=== PATIENT | female | born 1945 | race Caucasian/White ===

== ENCOUNTER 2019-04-30 12:33 | Inpatient (IN) ==
[2019-04-30] MEDS ORDERED: Isovue-370 500 ML BOTTLE IVP ONE (13:10)
--- NOTE | 2019-04-30 13:23 | Emergency Department Note ---
Disposition Clinical Impression: Right leg weakness, Stroke-like symptoms Disposition: Admitted As Inpatient Referrals: NONE,PCP [Primary Care Provider] - Forms: ED Satisfaction Letter Time of Disposition: 13:59 General Adult HPI - General Chief complaint: ED Neuro Symptoms/Deficit Stated complaint: Numbness/tingling right leg Time Seen by Provider: 04/30/19 12:55 Source: patient, family Mode of arrival: private vehicle Limitations: no limitations Nursing Notes Reviewed: Yes Vital Signs Reviewed: Yes - History of Present Illness HPI Narrative: Patient is a 74-year-old female in no past medical history presenting with a chief complaint of right-sided weakness. The patient states for the past 2-3 days, she complains of left lower extremity weakness and difficulty ambulating. She also feels like her left leg is numb. She also complains of some right sided weakness and hand numbness. She states that the numbness has improved. When she told her son today about the symptoms, he brought her to the emergency department for further evaluation. She denies any head trauma, headache, changes in vision, no slurred speech or confusion, chest pain, shortness of breath, abdominal pain, vomiting, recent illnesses. She states she has never had these symptoms before. Pain Scale: 0 - Related Data Home Medications Medication Instructions Recorded Confirmed No Known Home Drugs 04/30/19 04/30/19 Allergies Allergy/AdvReac Type Severity Reaction Status Date / Time No Known Allergies Allergy Verified 04/30/19 13:43 All systems ED: reviewed and negative except as stated. Review of Systems: As Per HPI Constitutional: Reports: weakness. Denies: fever, chills Eyes: Denies: vision change Cardiovascular: Denies: chest pain, palpitations Respiratory: Denies: cough, dyspnea Gastrointestinal: Denies: abdominal pain, nausea, vomiting Musculoskeletal: Denies: back pain Neurological: Reports: weakness, numbness. Denies: headache, confusion, vertigo Past Medical History - Past Medical History Attestation: Yes The following information was validated with the patient. Source: patient Medical history: Reports: non-contributory Psychiatric history: Reports: no psych history - Social History Smoking Status: Current every day smoker Smokeless Tobacco Status: No Alcohol use: Reports: rarely Drug use: Reports: none Physical Exam - General Limitations: no limitations General appearance: alert, in no apparent distress - Head Head exam: atraumatic, normocephalic - Eye Eye exam: Present: normal appearance, PERRL, EOMI. Absent: nystagmus - ENT ENT exam: normal exam, normal oropharynx, TM's normal bilaterally - Neck Neck exam: Present: normal inspection, trachea midline - Chest Chest inspection: Present: normal inspection, symmetric chest wall rise - Respiratory Respiratory exam: Present: normal lung sounds bilaterally. Absent: respiratory distress, wheezes - Cardiovascular Cardiovascular exam: Present: regular rate, normal rhythm, other (Bilateral radial and dorsalis pedis pulses are equal) - Abdominal Exam Abdominal exam: Present: soft, Non-Tender. Absent: distention - Extremities Exam Extremities exam: Present: full ROM, normal capillary refill. Absent: pedal edema - Neurological Exam Neurological exam: Present: alert, oriented X3, CN II-XII intact. Absent: motor sensory deficit - Expanded Neurological Exam Speech: Present: fluid speech Cerebellar function: finger to nose: Abnormal Right Motor strength - LUE: 5/5 Motor strength - RUE: 5/5 Motor strength - LLE: 5/5 Motor strength - RLE: 4/5 Upper motor neuron exam: adrianne neglect: Absent bilaterally, pronator drift: Absent bilaterally Sensory exam upper extremity: light touch: Normal Sensory exam lower extremity: light touch: Normal - Psychiatric Psychiatric exam: Present: normal affect, normal mood - Skin Skin exam: Present: warm, dry Course Vital Signs Temperature 98.0 F 04/30/19 12:39 Pulse Rate 84 04/30/19 12:39 Respiratory Rate 16 04/30/19 12:39 Blood Pressure 213/111 04/30/19 12:39 O2 Sat by Pulse Oximetry 96 04/30/19 12:39 Temperature 98.0 F 04/30/19 12:48 Pulse Rate 84 04/30/19 12:48 Respiratory Rate 16 04/30/19 12:48 Blood Pressure 213/111 04/30/19 12:48 O2 Sat by Pulse Oximetry 96 04/30/19 12:48 Oxygen Delivery Oxygen Delivery Room Air Medical Decision Making - [facility] Narrative Medical decision making narrative: Patient has CC of right leg weakness and numbness. Numbness is improving. She has an NIHSS of 2 with drift of the right lower extremity but does not hit bed and ataxia of the right upper extremity. Strength of the right lower extremity is 4/5 compared to the left and strength is equal of bilateral upper extremities. She has no sensory deficits on examination. Patient does not meet criteria for thrombectomy and TPA secondary to time of onset and NIH score. Will obtain stroke workup and admit the patient for further management 13:50 Labs and imaging reviewed. Hospice has been paged for admission for further stroke workup. Aspirin will be given as CT head shows no intracranial bleed 13:[address] Keating who accepts admission for further stroke workup. - Medical Records Medical records reviewed: Yes I reviewed the patient's medical records. - Lab Data Lab results reviewed: Yes I reviewed the patient's lab results. Result diagrams: 04/30/19 13:18 04/30/19 13:18 Lab Results 04/30/19 04/30/19 04/30/19 Range/Units 13:11 13:18 13:18 WBC 5.6 (4.3-11.1) K/mcL RBC 4.68 (3.82-4.97) M/mcL Hgb 14.4 (11.5-15.4) g/dL Hct 43.2 (35.3-44.9) % MCV 92.3 (83.0-100.0) fL MCH 30.8 (28.0-33.3) pg MCHC 33.3 (31.6-35.5) g/dL RDW 12.7 (11.5-14.5) % Plt Count 225 (140-400) K/mcL MPV 9.8 (9.4-12.4) fL Immature Gran % 0.2 (0-4) % Seg Neutrophils % 60.9 % Lymphocytes % 29.9 % Monocytes % 6.2 % Eosinophils % 1.4 % Basophils % 1.4 % Neutrophils # 3.4 (1.6-8.9) K/mcL Lymphocytes # 1.7 (0.6-4.6) K/mcL Monocytes # 0.4 (0.0-1.3) K/mcL Eosinophils # 0.1 (0.0-0.6) K/mcL Basophils # 0.1 (0.0-0.2) K/mcL PT 11.2 (9.4-12.1) Seconds INR 1.0 Sodium (136-145) mEq/L Potassium (3.5-5.1) mEq/L Chloride (98-107) mEq/L Carbon Dioxide (23-29) mEq/L BUN (8-23) mg/dL Creatinine (0.60-1.20) mg/dL Est GFR ( Amer) (> 60) Est GFR (Non-Af Amer) (> 60) BUN/Creatinine Ratio (6-26) Glucose (70-105) mg/dL POC Glucose 103 H (70-99) mg/dL Calculated Osmolality (280-300) Calcium (8.6-10.3) mg/dL Troponin I (< 0.04) ng/mL 04/30/19 Range/Units 13:18 WBC (4.3-11.1) K/mcL RBC (3.82-4.97) M/mcL Hgb (11.5-15.4) g/dL Hct (35.3-44.9) % MCV (83.0-100.0) fL MCH (28.0-33.3) pg MCHC (31.6-35.5) g/dL RDW (11.5-14.5) % Plt Count (140-400) K/mcL MPV (9.4-12.4) fL Immature Gran % (0-4) % Seg Neutrophils % % Lymphocytes % % Monocytes % % Eosinophils % % Basophils % % Neutrophils # (1.6-8.9) K/mcL Lymphocytes # (0.6-4.6) K/mcL Monocytes # (0.0-1.3) K/mcL Eosinophils # (0.0-0.6) K/mcL Basophils # (0.0-0.2) K/mcL PT (9.4-12.1) Seconds INR Sodium 139 (136-145) mEq/L Potassium 3.7 (3.5-5.1) mEq/L Chloride 106 (98-107) mEq/L Carbon Dioxide 24 (23-29) mEq/L BUN 17 (8-23) mg/dL Creatinine 0.47 L (0.60-1.20) mg/dL Est GFR ( Amer) > 60 (> 60) Est GFR (Non-Af Amer) > 60 (> 60) BUN/Creatinine Ratio 36 H (6-26) Glucose 110 H (70-105) mg/dL POC Glucose (70-99) mg/dL Calculated Osmolality 290 (280-300) Calcium 9.4 (8.6-10.3) mg/dL Troponin I < 0.03 (< 0.04) ng/mL - Radiology Data Radiology results reviewed: Yes I reviewed the patient's radiology results. Head CT 04/30/19 13:10 IMPRESSION: No acute intracranial abnormality. D/ / 04/30/2019 13:37:26 Melissa Castellanos MD / [facility] Interpreting Provider: Melissa Castellanos MD NIH Stroke Scale - Level of Consciousness LOC: Alert - LOC Questions LOC Questions: Answers both correctly - LOC Commands LOC Commands: Performs both correctly - Best Gaze Best Gaze: Normal - Visual Visual: No visual loss - Facial Palsy Facial Palsy: Normal - Motor Arms Motor Arm-Left: No drift for 10 seconds Motor Arm-Right: No drift for 10 seconds - Motor Legs Motor Leg-Left: No drift for 5 seconds Motor Leg-Right: Drift, does NOT hit bed - Limb Ataxia Limb Ataxia: Present in ONE limb - Sensory Sensory: Normal - Best Language Best Language: No aphasia - Dysarthria Dysarthria: Normal - Extinction and Inattention Extinction and Inattention: Normal - NIHSS Total Score NIHSS Total Score: 2
[2019-04-30 13:34] LABS: Basophils # 0.1 K/mcL (0.0-0.2); Basophils % 1.4 %; Eosinophils # 0.1 K/mcL (0.0-0.6); Eosinophils % 1.4 %; Hematocrit 43.2 % (35.3-44.9); Hemoglobin 14.4 g/dL (11.5-15.4); Immature Granulocytes % 0.2 % (0-4); Lymphocytes # 1.7 K/mcL (0.6-4.6); Lymphocytes % 29.9 %; Mean Corpuscular HGB Conc 33.3 g/dL (31.6-35.5); Mean Corpuscular Hemoglobin 30.8 pg (28.0-33.3); Mean Corpuscular Volume 92.3 fL (83.0-100.0); Mean Platelet Volume 9.8 fL (9.4-12.4); Monocytes # 0.4 K/mcL (0.0-1.3); Monocytes % 6.2 %; Neutrophils # 3.4 K/mcL (1.6-8.9); Platelet Count 225 K/mcL (140-400); Red Blood Count 4.68 M/mcL (3.82-4.97); Red Cell Distribution Width 12.7 % (11.5-14.5); Segmented Neutrophils % 60.9 %; White Blood Count 5.6 K/mcL (4.3-11.1)
[2019-04-30 13:42] LABS: Prothrombin Time 11.2 Seconds (9.4-12.1)
[2019-04-30 13:52] LABS: BUN/Creatinine Ratio 36 (6-26); Blood Urea Nitrogen 17 mg/dL (8-23); Calcium 9.4 mg/dL (8.6-10.3); Carbon Dioxide 24 mEq/L (23-29); Chloride 106 mEq/L (98-107); Glucose 110 mg/dL (70-105); Osmolality,Calculated 290 (280-300); Potassium 3.7 mEq/L (3.5-5.1); Sodium 139 mEq/L (136-145); Troponin I < 0.03 ng/mL (< 0.04); eGFR For African Americans > 60 (> 60); eGFR For Non-African Americans > 60 (> 60)
[2019-04-30] MEDS ORDERED: Aspirin 81 MG TAB.CHEW PO STA (13:54)
--- NOTE | 2019-04-30 13:55 | Emergency Department Note ---
Disposition Clinical Impression: Right leg weakness, Stroke-like symptoms Disposition: Admitted As Inpatient Referrals: NONE,PCP [Primary Care Provider] - Forms: ED Satisfaction Letter Time of Disposition: 13:59 General Adult HPI - General Chief complaint: ED Neuro Symptoms/Deficit Stated complaint: Numbness/tingling right leg Time Seen by Provider: 04/30/19 12:55 Source: patient, family Mode of arrival: private vehicle Limitations: no limitations - History of Present Illness Pain Scale: 0 - Related Data Home Medications Medication Instructions Recorded Confirmed No Known Home Drugs 04/30/19 04/30/19 Allergies Allergy/AdvReac Type Severity Reaction Status Date / Time No Known Allergies Allergy Verified 04/30/19 13:43 Constitutional: Reports: weakness. Denies: fever, chills Eyes: Denies: vision change Cardiovascular: Denies: chest pain, palpitations Respiratory: Denies: cough, dyspnea Gastrointestinal: Denies: abdominal pain, nausea, vomiting Musculoskeletal: Denies: back pain Neurological: Reports: weakness, numbness. Denies: headache, confusion, vertigo Past Medical History - Past Medical History Medical history: Reports: non-contributory Psychiatric history: Reports: no psych history - Social History Smoking Status: Current every day smoker Smokeless Tobacco Status: No Alcohol use: Reports: rarely Drug use: Reports: none Physical Exam - General Limitations: no limitations General appearance: alert, in no apparent distress Course Vital Signs Temperature 98.0 F 04/30/19 12:39 Pulse Rate 84 04/30/19 12:39 Respiratory Rate 16 04/30/19 12:39 Blood Pressure 213/111 04/30/19 12:39 O2 Sat by Pulse Oximetry 96 04/30/19 12:39 Temperature 98.0 F 04/30/19 12:48 Pulse Rate 84 04/30/19 12:48 Respiratory Rate 16 04/30/19 12:48 Blood Pressure 213/111 04/30/19 12:48 O2 Sat by Pulse Oximetry 96 04/30/19 12:48 Oxygen Delivery Oxygen Delivery Room Air Medical Decision Making - Lab Data Result diagrams: 04/30/19 13:18 04/30/19 13:18 Lab Results 04/30/19 04/30/19 04/30/19 Range/Units 13:11 13:18 13:18 WBC 5.6 (4.3-11.1) K/mcL RBC 4.68 (3.82-4.97) M/mcL Hgb 14.4 (11.5-15.4) g/dL Hct 43.2 (35.3-44.9) % MCV 92.3 (83.0-100.0) fL MCH 30.8 (28.0-33.3) pg MCHC 33.3 (31.6-35.5) g/dL RDW 12.7 (11.5-14.5) % Plt Count 225 (140-400) K/mcL MPV 9.8 (9.4-12.4) fL Immature Gran % 0.2 (0-4) % Seg Neutrophils % 60.9 % Lymphocytes % 29.9 % Monocytes % 6.2 % Eosinophils % 1.4 % Basophils % 1.4 % Neutrophils # 3.4 (1.6-8.9) K/mcL Lymphocytes # 1.7 (0.6-4.6) K/mcL Monocytes # 0.4 (0.0-1.3) K/mcL Eosinophils # 0.1 (0.0-0.6) K/mcL Basophils # 0.1 (0.0-0.2) K/mcL PT 11.2 (9.4-12.1) Seconds INR 1.0 Sodium (136-145) mEq/L Potassium (3.5-5.1) mEq/L Chloride (98-107) mEq/L Carbon Dioxide (23-29) mEq/L BUN (8-23) mg/dL Creatinine (0.60-1.20) mg/dL Est GFR ( Amer) (> 60) Est GFR (Non-Af Amer) (> 60) BUN/Creatinine Ratio (6-26) Glucose (70-105) mg/dL POC Glucose 103 H (70-99) mg/dL Calculated Osmolality (280-300) Calcium (8.6-10.3) mg/dL Troponin I (< 0.04) ng/mL 04/30/19 Range/Units 13:18 WBC (4.3-11.1) K/mcL RBC (3.82-4.97) M/mcL Hgb (11.5-15.4) g/dL Hct (35.3-44.9) % MCV (83.0-100.0) fL MCH (28.0-33.3) pg MCHC (31.6-35.5) g/dL RDW (11.5-14.5) % Plt Count (140-400) K/mcL MPV (9.4-12.4) fL Immature Gran % (0-4) % Seg Neutrophils % % Lymphocytes % % Monocytes % % Eosinophils % % Basophils % % Neutrophils # (1.6-8.9) K/mcL Lymphocytes # (0.6-4.6) K/mcL Monocytes # (0.0-1.3) K/mcL Eosinophils # (0.0-0.6) K/mcL Basophils # (0.0-0.2) K/mcL PT (9.4-12.1) Seconds INR Sodium 139 (136-145) mEq/L Potassium 3.7 (3.5-5.1) mEq/L Chloride 106 (98-107) mEq/L Carbon Dioxide 24 (23-29) mEq/L BUN 17 (8-23) mg/dL Creatinine 0.47 L (0.60-1.20) mg/dL Est GFR ( Amer) > 60 (> 60) Est GFR (Non-Af Amer) > 60 (> 60) BUN/Creatinine Ratio 36 H (6-26) Glucose 110 H (70-105) mg/dL POC Glucose (70-99) mg/dL Calculated Osmolality 290 (280-300) Calcium 9.4 (8.6-10.3) mg/dL Troponin I < 0.03 (< 0.04) ng/mL Attestation Statement - Attestation Attestation: I examined this patient and my medical decision-making was reviewed with the Resident Physician. I agree with the documented findings, disposition and treatment plan as described except to the extent set forth below. Patient presents with 2 days of symptoms suggestive of a mild stroke. Initially had some weakness in her right leg, which was mild but progressed over the course of a couple days, with some arm symptoms that developed at some point later. NIH is 2. She is not a candidate for endovascular stroke therapy given her mild deficit and more than 48 hours since the onset of symptoms. CT scan unremarkable. Labs unremarkable. He will be admitted to the hospital.
[2019-04-30] MEDS ORDERED: Naloxone 0.4 MG/ML INJ IVP PRN (15:25)
--- NOTE | 2019-04-30 15:40 | Internal Med History&Physical ---
<Sherri Mares E - Last Filed: 04/30/19 16:11> Date of Encounter: 04/30/19 Time of Encounter: 15:00 Internal Medicine - H&P: HPI Chief complaint: Right-sided weakness Admitted From: Home Plans for Post Hospital Care: Home History of present illness: Ms. Hall is a 74 year old female who presents after 3 day history of right- sided leg weakness which has progressively gotten worse. She states she feels she has to swing her leg in order to walk and has to hold on to things that she walks now. She also states that her right hand feels a little bit weak to her. She denies any headache, dizziness, shakiness, chest pain, shortness of breath, abdominal pain, nausea, vomiting, diarrhea, recent illness. She states that it initially came on is more of a tingling sensation in her right foot and slowly extended up her legs to her knee it has been felt like it was getting weak as well. She stated today when she got up she felt she had to swing her leg in order to walk and felt unsteady on her feet would feel off balance due to this. She denies any recent surgeries. Patient does have a past medical history of hypertension for which she was on medication until about 5 years ago, she also has lumbar area arthritis Family history included a grandmother with heart disease, mother with cancer and maternal aunt with cancer. Patient's only medications include occasional Advil as well as occasional aspirin one her arthritis is bothering her in her back but denies any other past medical history Patient states that she is a current smoker but a pack of cigarettes will last her nearly a week, denies any alcohol use, denies any drug use. On admission her vitals included temperature 90.8, pulse rate 84, respiratory rate 16, blood pressure of 213/111, oxygen of 96% Patient's labs show white blood cell count of 5.6, hemoglobin of 14.4, hematocrit 43.2, platelets of 225, PT of 11.2, INR 1, sodium 139, potassium 3.7, chloride 106, BUN is 17, creatinine 0.47, GFR of greater than 60, glucose of 110 and troponin of less than 0.03. ER noted an NIH scale of 2 and due to patient's NIH scale as well as over 48 hours since symptom onset patient was not eligible for TPA therapy CTA head showed no acute intracranial hemorrhage, mass effect or midline shift. No abnormal extra-axial fluid collections. The ni-white differentiation is maintained. There is no hydrocephalus. Mild periventricular and subcortical white matter patchy low attenuation compatible with chronic microvascular ischemic changes. Intracranial atherosclerotic disease. No acute abnormality intracranially. Past Med Surg Social Fam HX - Past Medical History Medical history: non-contributory Psychiatric history: no psych history - Past Surgical History Additional surgical history: hemmoriodectomy - Social History Smoking Status: Current every day smoker Smokeless Tobacco Status: No Alcohol use: rarely Drug use: none Internal Medicine - H&P: Meds No Known Home Drugs 04/30/19 [History] Allergy/AdvReac Type Severity Reaction Status Date / Time No Known Allergies Allergy Verified 04/30/19 13:43 All Systems PM: A 10-system review of systems was performed and is negative for pertinent findings except as documented above in the HPI. - Constitutional Constitutional: no anorexia, no chills, no fever(s) - EENT Eyes: no blurry vision Ears: no decreased hearing - Cardiovascular Cardiovascular ROS IM: no chest pain, no diaphoresis, no edema - Respiratory Respiratory: no cough, no dyspnea, no change in phlegm color - Gastrointestinal Gastrointestinal: no bloating, no diarrhea, no nausea, no vomiting - Musculoskeletal Musculoskeletal ROS IM: back pain (Chronic back pain from arthritis), muscle cramps (Leg cramps), numbness (Right lower leg) - Neurological Neurological ROS: abnormal gait, focal weakness (Right lower leg and right arm), no abnormal speech, no behavioral changes, no confusion - Psychiatric Psychiatric: no anxiety, no depression - Constitutional Vitals: Temp Pulse Resp BP Pulse Ox 98.0 F 79 20 166/100 98 04/30/19 12:48 04/30/19 14:41 04/30/19 14:41 04/30/19 14:41 04/30/19 14:41 General appearance: Present: A&O X 3, no acute distress Exam: As noted - Head Head exam: Present: atraumatic, normal inspection - Eye Eye exam: Present: normal appearance, PERRL Pupils: Present: normal accommodation - ENT ENT exam: Present: mucous membranes moist - Neck Neck exam general surgery: Present: full ROM. Absent: lymphadenopathy, tenderness - Respiratory Respiratory exam: Present: CTAB. Absent: rales, rhonchi, wheezes - Cardiovascular Cardiovascular exam: Present: RRR. Absent: diastolic murmur, JVD, systolic murmur - GI/Abdominal GI/Abdominal exam: Absent: distended, guarding, rigid - Expanded Neurological Exam Neurological exam expanded: Absent: memory loss-recent event, memory loss-remote event, receptive aphasia Patient oriented to: Present: person, place, time Speech: Present: fluid speech Cerebellar function: finger to nose: Abnormal Right, heel to cordon: Abnormal R ight Upper motor neuron: Babinski sign: Normal Sensory exam: lower extremity light touch: Normal, upper extremity light touch: Normal Neuro motor strength exam: LUE: 5, RUE: 4, LLE: 5, RLE: 3 DTR: patellar (L): 2+, patellar (R): 2+ Coma Scale Eye Opening: Spontaneous Coma Scale Motor Response: Obeys Commands Coma Scale Verbal Response: Oriented Coma Scale Total: 15 - Skin Skin exam: Present: dry, intact, warm Internal Med - H&P Results - Labs CBC & Chem 7: 04/30/19 13:18 04/30/19 13:18 Labs: Short CBC 04/30/19 Range/Units 13:18 WBC 5.6 (4.3-11.1) K/mcL Hgb 14.4 (11.5-15.4) g/dL Hct 43.2 (35.3-44.9) % Plt Count 225 (140-400) K/mcL Neutrophils # 3.4 (1.6-8.9) K/mcL BMP 04/30/19 13:18 Sodium 139 Potassium 3.7 Chloride 106 Carbon Dioxide 24 BUN 17 Creatinine 0.47 L Glucose 110 H Calcium 9.4 Cardiac Enzymes 04/30/19 Range/Units 13:18 Troponin I < 0.03 (< 0.04) ng/mL - Impressions ITS Impressions Head CT 04/30/19 13:10 IMPRESSION: No acute intracranial abnormality. D/ / 04/30/2019 13:37:26 [facility]ellanos MD / [facility] Inter[facility]ting Provider: Melissa Castellanos MD - Assessment and Plan (1) Progressive focal motor weakness Current Visit: Yes Status: Acute Assessment and plan: Suspected CVA due to right lower extremity muscle weakness as well as right upper extremity muscle weakness This is been progressive for the past 3 days Patient denies any other symptoms On exam patient has abnormal past-pointing right hand as well as [id number] testing on the right. 3 out of 5 muscle strength lower right extremity 4 out of 5 muscle strength right upper extremity CT head shows no acute intracranial abnormalities although does show some mild periventricular and subcortical white matter patchy low attenuation which is compatible with chronic microvascular ischemic changes We will order MRI head/brain without contrast Echocardiogram ordered Carotid Dopplers ordered Lipid panel, A1c, CBC, CMP ordered Patient started on aspirin Due to patient's NIH score of 2 as well as over 48 hours since symptoms started she is not a candidate for TPA at this time Continue to monitor for any changes Neurology is on board (2) Hypertension Current Visit: Yes Status: Acute Assessment and plan: We will add when necessary hydralazine for blood pressures greater than 180/90 due to its short half-life Permissive hypertension in this case due to possible CVA should be followed Qualifiers: Hypertension type: unspecified Qualified Code(s): I10 - Essential (primary) hypertension (3) Tobacco abuse Current Visit: Yes Status: Acute Assessment and plan: Patient is a one pack per week smoker Nicotine patches are contraindicated in this case due to possible CVA and nicotine's prothrombotic tendencies Spoke with patient about smoking cessation (4) DVT prophylaxis Current Visit: Yes Status: Acute Assessment and plan: ECPDs - Time Spent With Patient Total time spent is greater than 50% in coordination of care (as documented) at patient's floor/unit and/or counseling patient: <Nathalia Sharif - Last Filed: 04/30/19 16:32> Date of Encounter: 04/30/19 Internal Medicine - H&P: HPI History of present illness: Ms. Hall is a 74 year old female All Systems PM: A 10-system review of systems was performed and is negative for pertinent findi ngs except as documented above in the HPI. - Constitutional Vitals: Temp Pulse Resp BP Pulse Ox 97.9 F 68 16 196/66 94 04/30/19 15:30 04/30/19 15:30 04/30/19 15:30 04/30/19 15:30 04/30/19 15:30 Internal Med - H&P Results - Labs CBC & Chem 7: 04/30/19 13:18 04/30/19 13:18 Labs: Short CBC 04/30/19 Range/Units 13:18 WBC 5.6 (4.3-11.1) K/mcL Hgb 14.4 (11.5-15.4) g/dL Hct 43.2 (35.3-44.9) % Plt Count 225 (140-400) K/mcL Neutrophils # 3.4 (1.6-8.9) K/mcL BMP 04/30/19 13:18 Sodium 139 Potassium 3.7 Chloride 106 Carbon Dioxide 24 BUN 17 Creatinine 0.47 L Glucose 110 H Calcium 9.4 Cardiac Enzymes 04/30/19 Range/Units 13:18 Troponin I < 0.03 (< 0.04) ng/mL - Impressions ITS Impressions Head CT 04/30/19 13:10 IMPRESSION: No acute intracranial abnormality. D/ / 04/30/2019 13:37:26 Melissa Castellanos MD / [facility] Interpreting Provider: Melissa Castellanos MD - Time Spent With Patient Total time spent is greater than 50% in coordination of care (as documented) at patient's floor/unit and/or counseling patient: - Attending Attestation I saw evaluated and examined this patient and reviewed objective data including labs and my medical decision-making was reviewed with the Resident Physician. I agree with the documented findings, disposition and treatment plan as described except to any changes set forth below. We independently had [id number] contact with the patient.
[2019-05-01 05:50] LABS: Basophils # 0.1 K/mcL (0.0-0.2); Eosinophils # 0.3 K/mcL (0.0-0.6); Eosinophils % 5.2 %; Hematocrit 40.9 % (35.3-44.9); Hemoglobin 13.3 g/dL (11.5-15.4); Immature Granulocytes % 0.2 % (0-4); Lymphocytes # 1.8 K/mcL (0.6-4.6); Lymphocytes % 31.5 %; Mean Corpuscular HGB Conc 32.5 g/dL (31.6-35.5); Mean Corpuscular Hemoglobin 30.9 pg (28.0-33.3); Mean Corpuscular Volume 95.1 fL (83.0-100.0); Mean Platelet Volume 9.7 fL (9.4-12.4); Monocytes # 0.5 K/mcL (0.0-1.3); Monocytes % 7.8 %; Neutrophils # 3.1 K/mcL (1.6-8.9); Platelet Count 217 K/mcL (140-400); Red Cell Distribution Width 12.7 % (11.5-14.5); Segmented Neutrophils % 54.3 %; White Blood Count 5.8 K/mcL (4.3-11.1)
[2019-05-01 05:58] LABS: INR 1.1; Prothrombin Time 12.1 Seconds (9.4-12.1)
[2019-05-01 06:11] LABS: Alanine Aminotransferase 7 Units/L (7-52); Albumin 3.7 g/dL (3.5-5.7); Albumin/Globulin Ratio 1.6 (1.1-2.2); Alkaline Phosphatase 61 Units/L (34-104); Aspartate Amino Transferase 12 Units/L (13-39); BUN/Creatinine Ratio 44 (6-26); Bilirubin,Total 0.5 mg/dL (0.3-1.0); Blood Urea Nitrogen 24 mg/dL (8-23); Calcium 8.7 mg/dL (8.6-10.3); Carbon Dioxide 25 mEq/L (23-29); Chloride 108 mEq/L (98-107); Chol/HDL Ratio 3.4 (0-4.9); Cholesterol 178 mg/dL (< 200); Globulin 2.3 g/dL (2.4-3.5); Glucose 202 mg/dL (70-105); HDL Cholesterol 52 mg/dL (40-59); LDL Cholesterol,Calculated 110 mg/dL (0-99); Osmolality,Calculated 306 (280-300); Potassium 3.6 mEq/L (3.5-5.1); Sodium 143 mEq/L (136-145); Triglycerides 79 mg/dL (< 150); eGFR For African Americans > 60 (> 60); eGFR For Non-African Americans > 60 (> 60)
[2019-05-01 06:20] LABS: Estimated Average Glucose 111 mg/dl
--- NOTE | 2019-05-01 08:48 | Internal Med Progress Note ---
<DarielroniElie dodgeSherri E - Last Filed: 05/01/19 13:25> Hospitalist Progress Note - Encounter Date of Encounter: 05/01/19 Time of Encounter: 08:00 - Subjective Interval History: Ms Hall is a 74-year-old female who initially presented with strokelike symptoms Patient was seen and examined at bedside today. She states that her weakness in her right lower leg as well as right arm have continued. She denies any chest pain, shortness of breath, nausea, vomiting, diarrhea, abdominal pain, worsening weakness. - Exam Vitals: Temp Pulse Resp BP Pulse Ox 98.1 F 65 16 100/68 94 05/01/19 06:36 05/01/19 06:36 05/01/19 06:36 05/01/19 06:36 05/01/19 06:36 Exam: General: A 3, no acute distress, answers questions appropriately Head: normocephalic, atraumatic Eyes: MANJULA, no icterus Cardio: RRR, no mumurs, rubs, or gallops Respiratory: CTAB, no wheezing, rhonchi, rales Abd: normal bowel sounds, no guarding or rigidity Extremities: no pedal edema, pulses equal bilaterally, warm Neuro: Patient continues to have abnormal pass pointing on the right as well as [id number] testing on the right, right arm strength continues be +4 out of 5 while left arm strength is +5 out of 5, right leg strength +3 out of 5 left leg strength was 5 out of 5 Skin: warm, dry, intact - Assessment and Plan (1) Progressive focal motor weakness Current Visit: Yes Status: Acute Assessment and Plan: Due to CVA symptoms of right lower extremity muscle weakness as well as right upper extremity muscle weakness This is been progressive for the past 3 days Patient denies any other symptoms Due to patient's NIH score of 2 as well as over 48 hours since symptoms started she is not a candidate for TPA at this time On exam patient has abnormal past-pointing right hand as well as [id number] testing on the right. 3 out of 5 muscle strength lower right extremity 4 out of 5 muscle strength right upper extremity CT head shows no acute intracranial abnormalities although does show some mild periventricular and subcortical white matter patchy low attenuation which is compatible with chronic microvascular ischemic changes MRI head/brain without contrast: Acute infarct within left periventricular white matter extending into the left basal ganglia.Additional separate foci of restricted diffusion within the left posterior lentiform nucleus with associated susceptibility signal. No corresponding area of hemorrhage is identified on CT examination. This may represent sequela of previous lacunar infarct, although superimposed additional acute infarct is not excluded. Short interval follow-up CT examination may be obtained to exclude new small amount of hemorrhage. No evidence of acute lobar hemorrhage. No evidence of midline shift. Extensive presumed chronic small vessel ischemic white matter disease. Diffuse cerebral volume loss. Nonspecific left mastoid opacification Echocardiogram ordered Carotid Dopplers ordered Lipid panel showed LDL 110 Patient started on aspirin as well as Plavix and atorvastatin 40 mg Continue to monitor for any changes Neurology is on board (2) CVA (cerebral vascular accident) Current Visit: Yes Status: Acute Assessment and Plan: Please see progressive focal motor weakness (3) Hypertension Current Visit: Yes Status: Acute Assessment and Plan: Currently well controlled PRN hydralazine for blood pressures greater than 180/90 due to its short half- life Permissive hypertension in this case due to possible CVA should be followed (4) Tobacco abuse Current Visit: Yes Status: Acute Assessment and Plan: Patient is a one pack per week smoker Nicotine patches are contraindicated in this case due to possible CVA and nicotine's prothrombotic tendencies Spoke with patient about smoking cessation (5) DVT prophylaxis Current Visit: Yes Status: Acute Assessment and Plan: ECPDs DVT Prophylaxis: ECPDs - Time Spent with Patient Total time spent is greater than 50% in coordination of care (as documented) at patient's floor/unit and/or counseling patient: Internal Medicine: Result - Labs CBC & Chem 7: 05/01/19 05:25 05/01/19 05:25 Labs: Short CBC 04/30/19 05/01/19 Range/Units 13:18 05:25 WBC 5.6 5.8 (4.3-11.1) K/mcL Hgb 14.4 13.3 (11.5-15.4) g/dL Hct 43.2 40.9 (35.3-44.9) % Plt Count 225 217 (140-400) K/mcL Neutrophils # 3.4 3.1 (1.6-8.9) K/mcL BMP 04/30/19 05/01/19 13:18 05:25 Sodium 139 143 Potassium 3.7 3.6 Chloride 106 108 H Carbon Dioxide 24 25 BUN 17 24 H Creatinine 0.47 L 0.55 L Glucose 110 H 202 H Calcium 9.4 8.7 Cardiac Enzymes 04/30/19 Range/Units 13:18 Troponin I < 0.03 (< 0.04) ng/mL Liver Function 05/01/19 Range/Units 05:25 Total Bilirubin 0.5 (0.3-1.0) mg/dL AST 12 L (13-39) Units/L ALT 7 (7-52) Units/L Alkaline Phosphatase 61 (34-104) Units/L Albumin 3.7 (3.5-5.7) g/dL - ABG Interpretation ABG results: PT/INR, D-dimer PT 12.1 Seconds (9.4-12.1) 05/01/19 05:25 - Impressions Impressions Head CT 04/30/19 13:10 IMPRESSION: No acute intracranial abnormality. D/ / 04/30/2019 13:37:26 Melissa Castellanos MD / [facility] Interpreting Provider: Melissa Castellanos MD Brain MRI 04/30/19 16:01 IMPRESSION: Acute infarct within left periventricular white matter extending into the left basal ganglia. Additional separate foci of restricted diffusion within the left posterior lentiform nucleus with associated susceptibility signal. No corresponding area of hemorrhage is identified on CT examination. This may represent sequela of previous lacunar infarct, although superimposed additional acute infarct is not excluded. Short interval follow-up CT examination may be obtained to exclude new small amount of hemorrhage. No evidence of acute lobar hemorrhage. No evidence of midline shift. Extensive presumed chronic small vessel ischemic white matter disease. Diffuse cerebral volume loss. Nonspecific left mastoid opacification. D/ / 04/30/2019 18:16:50 Horacio Parada MD / [facility] Interpreting Provider: Horacio Parada MD Consult Discharge Plan - Plan Referrals: NONE,PCP [Primary Care Provider] - <Nathalia Sharif - Last Filed: 05/01/19 14:34> Hospitalist Progress Note - Encounter Date of Encounter: 05/01/19 - Exam Vitals: Temp Pulse Resp BP Pulse Ox 98.3 F 65 15 173/83 97 05/01/19 10:49 05/01/19 10:49 05/01/19 10:49 05/01/19 10:49 05/01/19 10:49 - Time Spent with Patient Total time spent is greater than 50% in coordination of care (as documented) at patient's floor/unit and/or counseling patient: Internal Medicine: Result - Labs CBC & Chem 7: 05/01/19 05:25 05/01/19 05:25 Labs: Short CBC 05/01/19 Range/Units 05:25 WBC 5.8 (4.3-11.1) K/mcL Hgb 13.3 (11.5-15.4) g/dL Hct 40.9 (35.3-44.9) % Plt Count 217 (140-400) K/mcL Neutrophils # 3.1 (1.6-8.9) K/mcL BMP 05/01/19 05:25 Sodium 143 Potassium 3.6 Chloride 108 H Carbon Dioxide 25 BUN 24 H Creatinine 0.55 L Glucose 202 H Calcium 8.7 Liver Function 05/01/19 Range/Units 05:25 Total Bilirubin 0.5 (0.3-1.0) mg/dL AST 12 L (13-39) Units/L ALT 7 (7-52) Units/L Alkaline Phosphatase 61 (34-104) Units/L Albumin 3.7 (3.5-5.7) g/dL - ABG Interpretation ABG results: PT/INR, D-dimer PT 12.1 Seconds (9.4-12.1) 05/01/19 05:25 - Impressions Impressions Brain MRI 04/30/19 16:01 IMPRESSION: Acute infarct within left periventricular white matter extending into the left basal ganglia. Additional separate foci of restricted diffusion within the left posterior lentiform nucleus with associated susceptibility signal. No corresponding area of hemorrhage is identified on CT examination. This may represent sequela of previous lacunar infarct, although superimposed additional acute infarct is not excluded. Short interval follow-up CT examination may be obtained to exclude new small amount of hemorrhage. No evidence of acute lobar hemorrhage. No evidence of midline shift. Extensive presumed chronic small vessel ischemic white matter disease. Diffuse cerebral volume loss. Nonspecific left mastoid opacification. D/ / 04/30/2019 18:16:50 Horacio Parada MD / [facility] Interpreting Provider: Horacio Parada MD Echocardiogram 04/30/19 16:07 Impressions: No evidence of PFO by color Doppler or agitated saline LVEF 60-65%. Mild left ventricular diastolic dysfunction. No pulmonary hypertension. No significant valvular dysfunction. Left Ventricular Wall Motion: Rest Echo Findings All wall segments showed normal motion. Findings: Study Quality * Technically adequate exam. Right Ventricle * Normal right ventricular structure and function. Left Atrium * Normal left atrial size. Right Atrium * Normal right atrial size. Aortic Valve * Trileaflet aortic valve with normal function. Mitral Valve * Normal mitral valve structure and function. Interatrial Septum * No evidence of PFO by color Doppler or agitated saline Aorta * Normally sized aortic root. Pericardium * The pericardium appears normal. Left Ventricle * LVEF 60-65%. * Normal LV chamber size, wall thickness and function. * No segmental dysfunction. * Mild left ventricular diastolic dysfunction. ECG Findings * Normal sinus rhythm. Tricuspid Valve * No tricuspid stenosis. * Estimated RVSP is 29 mmHg. * Estimated RA pressure is 0-5 mmHg. * No pulmonary hypertension. * Mild tricuspid regurgitation. Pulmonic Valve * No pulmonic stenosis. * Trace pulmonic regurgitation. - Attending Attestation I saw evaluated and examined this patient and reviewed objective data including labs and my medical decision-making was reviewed with the Resident Physician. I agree with the documented findings, disposition and treatment plan as described except to any changes set forth below. We independently had [id number] contact with the patient. <Sherri Mares E - Last Filed: 05/01/19 13:25> (2) CVA (cerebral vascular accident) Qualifiers: CVA mechanism: unspecified Qualified Code(s): I63.9 - Cerebral infarction, un specified (3) Hypertension Qualifiers: Hypertension type: unspecified Qualified Code(s): I10 - Essential (primary) hypertension
--- NOTE | 2019-05-01 11:05 | Neurology - Consult Note ---
Date of Encounter: 05/01/19 Time of Encounter: 11:03 Assessment and Plan (1) CVA (cerebral vascular accident) Current Visit: Yes Status: Acute This is 74-year-old woman with past medical history significant for hypertension, tobacco abuse who developed acute onset of right-sided weakness caused by acute cerebral infarct involving left periventricular area extending into left basal ganglia, likely a lacunar infarct secondary to small vessel etiology. Patient certainly needs full stroke workup including echocardiogram, carotid artery Doppler study, CT angiogram of the head and neck Agree with antiplatelet therapy in the form of aspirin 81 mg daily and the patient also needs statin therapy If stroke workup returns negative then it is expected that this would be a short hospital stay. PT/OT Qualifiers: CVA mechanism: unspecified Qualified Code(s): I63.9 - Cerebral infarction, unspecified History of Present Illness Chief complaint: right sided weakness and CVA HPI: Ms. Hall is a 74 year old female with a past medical history significant for hypertension, tobacco abuse who developed acute onset of right-sided weakness and numbness about 3 days ago prior to admission. Patient states that she does not normally see doctors and only has hypertension as her medical problems but has not been taking medication for high blood pressure. She is a regular smoker however. About 3 days ago, she developed weakness involving her right arm and leg as well as some numbness however, she did not seek medical help immediately. She presented to the emergency room yesterday with a right-sided weakness that has not been improving. Initial CT of the head showed no acute intracranial abnormality. And the patient was then admitted onto the medical floor for further evaluation At the time of this interview, patient completed MRI of the brain which demonstrated acute cerebral infarct involving the left periventricular white matter extending into the left basal ganglia. This would be able to explain her clinical presentation. Asians was started on aspirin 325 mg daily. At the time of this interview, patient still has hemiparesis involving the right arm and leg. Her mental status is intact. There is no significant speech difficulty. Past Med Surg Social Fam HX - Past Medical History Medical history: non-contributory Psychiatric history: no psych history - Past Surgical History Additional surgical history: hemmoriodectomy - Social History Smoking Status: Current every day smoker Smokeless Tobacco Status: No Alcohol use: rarely Drug use: none - Family History Mother Hx Family Cancer: Yes (lung cancer) Medications and Allergies No Known Home Drugs 04/30/19 [History] Allergy/AdvReac Type Severity Reaction Status Date / Time No Known Allergies Allergy Verified 04/30/19 16:39 All Systems: The remainder of the systems were reviewed and are negative - Constitutional Constitutional ROS IM: as per HPI - Nose, Mouth, Throat Nose, mouth and throat: abnormal hearing (no), change in voice (no) - Cardiovascular Cardiovascular ROS IM: chest pain (no), chest pain at rest (no), chest pain with activity (no) - Respiratory Respiratory IM: cough (no), dyspnea (no), hemoptysis (no) - Gastrointestinal Gastrointestinal: abdominal pain (no) - Genitourinary Genitourinary ROS: change in urinary stream (no) - Musculoskeletal Musculoskeletal ROS IM: abnormal gait (no) - Neurological Neurological ROS: abnormal gait (no), abnormal hearing (no), focal weakness (yes), numbness (yes) - Psychiatric Psychiatric general PM: abnormal sleep pattern (no), anhedonia (no), auditory hallucinations (no) - Endocrine Endocrine IM: change in body appearance (no) - Hematologic/Lymphatic Hematologic/Lymphatic pediatric: easy bleeding (no) Physical Examination - Vital Signs Vital Signs: Initial Vital Signs Temp Pulse Resp BP Pulse Ox 98.0 F 84 16 213/111 96 04/30/19 12:39 04/30/19 12:39 04/30/19 12:39 04/30/19 12:39 04/30/19 12:39 Results - Laboratory Findings CBC and BMP: 05/01/19 05:25 05/01/19 05:25 Abnormal lab findings: Abnormal lab results Chloride 108 mEq/L (98-107) H 05/01/19 05:25 BUN 24 mg/dL (8-23) H 05/01/19 05:25 Creatinine 0.55 mg/dL (0.60-1.20) L 05/01/19 05:25 BUN/Creatinine Ratio 44 (6-26) H 05/01/19 05:25 Glucose 202 mg/dL (70-105) H 05/01/19 05:25 POC Glucose 103 mg/dL (70-99) H 04/30/19 13:11 Calculated Osmolality 306 (280-300) H 05/01/19 05:25 AST 12 Units/L (13-39) L 05/01/19 05:25 Serum Total Protein 6.0 g/dL (6.4-8.9) L 05/01/19 05:25 Globulin 2.3 g/dL (2.4-3.5) L 05/01/19 05:25 LDL Cholesterol, Calc 110 mg/dL (0-99) H 05/01/19 05:25 - Diagnostic Findings Additional findings: CT OF THE HEAD WITHOUT CONTRAST 04/30/2019 1:27 pm TECHNIQUE: CT of the head was performed without the administration of intravenous contrast. Dose modulation, iterative reconstruction, and/or weight based adjustment of the mA/kV was utilized to reduce the radiation dose to as low as reasonably achievable. COMPARISON: None. HISTORY: ORDERING SYSTEM PROVIDED HISTORY: right sided weakness, stroke like symptoms FINDINGS: BRAIN/VENTRICLES: There is no acute intracranial hemorrhage, mass effect or midline shift. No abnormal extra-axial fluid collection. The ni-white differentiation is maintained acute infarct. There is no hydrocephalus. Mild periventricular and subcortical white matter patchy low attenuation compatible with chronic microvascular ischemic changes. Intracranial atherosclerotic disease. ORBITS: The visualized portion of the orbits demonstrate no acute abnormality. SINUSES: The visualized paranasal sinuses and mastoid air cells demonstrate no acute abnormality. SOFT TISSUES/SKULL: No acute abnormality of the visualized skull or soft tissues. CT/CT head/brain wo con IMPRESSION: No acute intracranial abnormality. D/ / 04/30/2019 13:37:26 Melissa Castellanos MD / [facility] Interpreting Provider: Melissa Castellanos MD MRI OF THE BRAIN WITHOUT CONTRAST 04/30/2019 6:00 pm TECHNIQUE: Multiplanar multisequence MRI of the brain was performed without the administration of intravenous contrast. COMPARISON: CT head on 04/30/2019. HISTORY: ORDERING SYSTEM PROVIDED HISTORY: possible CVA FINDINGS: INTRACRANIAL STRUCTURES/VENTRICLES: There is restricted diffusion within the left periventricular white matter extending into the left basal ganglia. Additional separate foci of restricted diffusion in the left posterior lentiform nucleus. Small area of susceptibility signal corresponding to the left posterior lentiform nucleus. No evidence of acute lobar hemorrhage. Extensive T2 hyperintense white matter lesions bilaterally. Although these are nonspecific by imaging alone, these are most often attributed to chronic small vessel ischemic white matter disease. Prominence of ventricles and sulci is compatible with diffuse cerebral volume loss. No evidence of obstructive hydrocephalus. Intracranial flow voids are appropriately present. No evidence of midline shift. The basal cisterns are patent. ORBITS: The orbits are unremarkable. SINUSES: Nonspecific opacification of left mastoid air cells. Right mastoid air cells are unremarkable. The paranasal sinuses are grossly unremarkable. BONES/SOFT TISSUES: The marrow signal within the clivus and upper cervical spine appears unremarkable. No significant soft tissue abnormalities identified. MR/MR head/brain wo con IMPRESSION: Acute infarct within left periventricular white matter extending into the left basal ganglia. Additional separate foci of restricted diffusion within the left posterior lentiform nucleus with associated susceptibility signal. No corresponding area of hemorrhage is identified on CT examination. This may represent sequela of previous lacunar infarct, although superimposed additional acute infarct is not excluded. Short interval follow-up CT examination may be obtained to exclude new small amount of hemorrhage. No evidence of acute lobar hemorrhage. No evidence of midline shift. Extensive presumed chronic small vessel ischemic white matter disease. Diffuse cerebral volume loss. Nonspecific left mastoid opacification. D/ / 04/30/2019 18:16:50 [facility]ada [facility] Inter[facility] Provider: Horacio Parada MD Consult Discharge Plan - Plan Referrals: NONE,PCP [Primary Care Provider] -
[2019-05-01] MEDS ORDERED: Isovue-370 500 ML BOTTLE IVP ONE (11:16)
[2019-05-02 04:38] LABS: Basophils # 0.1 K/mcL (0.0-0.2); Basophils % 0.8 %; Eosinophils # 0.3 K/mcL (0.0-0.6); Hematocrit 39.5 % (35.3-44.9); Immature Granulocytes % 0.3 % (0-4); Lymphocytes % 31.4 %; Mean Corpuscular HGB Conc 32.9 g/dL (31.6-35.5); Mean Corpuscular Hemoglobin 30.6 pg (28.0-33.3); Mean Corpuscular Volume 92.9 fL (83.0-100.0); Mean Platelet Volume 9.9 fL (9.4-12.4); Monocytes # 0.6 K/mcL (0.0-1.3); Monocytes % 8.8 %; Neutrophils # 3.5 K/mcL (1.6-8.9); Platelet Count 209 K/mcL (140-400); Red Blood Count 4.25 M/mcL (3.82-4.97); Red Cell Distribution Width 12.7 % (11.5-14.5); Segmented Neutrophils % 53.7 %; White Blood Count 6.5 K/mcL (4.3-11.1)
[2019-05-02 04:58] LABS: BUN/Creatinine Ratio 44 (6-26); Blood Urea Nitrogen 25 mg/dL (8-23); Calcium 8.5 mg/dL (8.6-10.3); Carbon Dioxide 27 mEq/L (23-29); Chloride 105 mEq/L (98-107); Glucose 106 mg/dL (70-105); Osmolality,Calculated 295 (280-300); Potassium 3.6 mEq/L (3.5-5.1); Sodium 140 mEq/L (136-145); eGFR For African Americans > 60 (> 60); eGFR For Non-African Americans > 60 (> 60)
[2019-05-02] MEDS: Aspirin 81 MG TAB.CHEW PO SCH (08:04)
--- NOTE | 2019-05-02 10:07 | Neurology Progress Note ---
Date of Encounter: 05/02/19 Time of Encounter: 10:05 Assessment and Plan (1) CVA (cerebral vascular accident) Current Visit: Yes Status: Acute This is 74-year-old woman with past medical history significant for hypertension, tobacco abuse who developed acute onset of right-sided weakness caused by acute cerebral infarct involving left periventricular area extending into left basal ganglia, likely a lacunar infarct secondary to small vessel etiology. Stroke workup already completed and showed no source of emboli or major intracranial arterial stenosis Agree with aspirin 81 mg daily and statin therapy. Risk factor modification advised to the patient. All questions answered We will sign off at this time. please call if any questions. Qualifiers: CVA mechanism: unspecified Qualified Code(s): I63.9 - Cerebral infarction, unspecified Subjective Principal diagnosis: CVA Interval history: Patient seen and examined. No new neurological symptoms reported. Still has mild right-sided weakness however, mental status and speech are intact. Patient completed CT angiogram of the neck and head which reported normal studies. Echocardiogram showed no evidence of PFO. Normal left ventricular ejection fraction of 60%. No significant valvular disease. No significant regional wall motion abnormality. Patient is currently taking aspirin 81 mg daily and statin therapy. Patient is to get physical therapy. Objective - Constitutional Vitals: Temp Pulse Resp BP Pulse Ox 97.8 F 60 16 175/93 97 05/02/19 07:38 05/02/19 07:38 05/02/19 07:38 05/02/19 07:38 05/02/19 07:38 - Neurological Exam Sensorimotor examination: Present: intact Motor examination - right side: 4/5: deltoids, biceps, triceps, wrist flexion, wrist extension, quality assurance monitor body, hip flexors, tibialis Anterior, quadriceps, toe extension (EHL), plantarflexion Motor examination - left side: 5/5: deltoids, biceps, triceps, wrist flexion, wrist extension, hip flexors, quality assurance monitor body, quadriceps, tibialis Anterior, toe extension (EHL), plantarflexion Reflexes: Biceps: 2+, Triceps: 2+, Brachioradialis: 2+, Patella: 2+, Achilles: 2+ Mental Status Examination: Present: awake, alert, oriented to person, oriented to place, oriented to time, follows commands appropriately, answers questions appropriately, no agnosia, no aphasia, no aproxia Cranial nerve examination: Present: PERRL, EOMI, visual cantu intact, corneal reflexes brisk symmetrically, sensory to face intact, mastication intact, no facial asymmetry is present, no dysarthria, hearing is intact symmetrically, soft palate elevates bilaterally upon phonation, gag reflex intact, flexes SCM and trapezius muscles symmetrically with full power, tongue protrudes midline, no atrophy or facial fasiculations present, taste anterior 2/3 tongue diminished Results - Laboratory Findings CBC and BMP: 05/02/19 04:18 05/02/19 04:18 Abnormal lab findings: Abnormal lab results Chloride 108 mEq/L (98-107) H 05/01/19 05:25 BUN 25 mg/dL (8-23) H 05/02/19 04:18 Creatinine 0.57 mg/dL (0.60-1.20) L 05/02/19 04:18 BUN/Creatinine Ratio 44 (6-26) H 05/02/19 04:18 Glucose 106 mg/dL (70-105) H 05/02/19 04:18 POC Glucose 101 mg/dL (70-99) H 05/01/19 19:56 Calculated Osmolality 306 (280-300) H 05/01/19 05:25 Calcium 8.5 mg/dL (8.6-10.3) L 05/02/19 04:18 AST 12 Units/L (13-39) L 05/01/19 05:25 Serum Total Protein 6.0 g/dL (6.4-8.9) L 05/01/19 05:25 Globulin 2.3 g/dL (2.4-3.5) L 05/01/19 05:25 LDL Cholesterol, Calc 110 mg/dL (0-99) H 05/01/19 05:25 Consult Discharge Plan - Plan Referrals: NONE,PCP [Primary Care Provider] -
--- NOTE | 2019-05-02 13:09 | Discharge Summary ---
<Sherri Mares E - Last Filed: 05/02/19 13:02> Date of Encounter: 05/02/19 Time of Encounter: 09:55 - Discharge Diagnosis (1) Progressive focal motor weakness Priority: Primary Status: Acute Assessment and Plan: Due to CVA symptoms of right lower extremity muscle weakness as well as right upper extremity muscle weakness This is been progressive for the past 3 days Patient denies any other symptoms Due to patient's NIH score of 2 as well as over 48 hours since symptoms started she is not a candidate for TPA at this time On exam patient has abnormal past-pointing right hand as well as yjed-[id number]-[id number] testing on the right. 3 out of 5 muscle strength lower right extremity 4 out of 5 muscle strength right upper extremity CT head shows no acute intracranial abnormalities although does show some mild periventricular and subcortical white matter patchy low attenuation which is compatible with chronic microvascular ischemic changes MRI head/brain without contrast: Acute infarct within left periventricular white matter extending into the left basal ganglia.Additional separate foci of restricted diffusion within the left posterior lentiform nucleus with associated susceptibility signal. No corresponding area of hemorrhage is identified on CT examination. This may represent sequela of previous lacunar infarct, although superimposed additional acute infarct is not excluded. Short interval follow-up CT examination may be obtained to exclude new small amount of hemorrhage. No evidence of acute lobar hemorrhage. No evidence of midline shift. Extensive presumed chronic small vessel ischemic white matter disease. Diffuse cerebral volume loss. Nonspecific left mastoid opacification Unremarkable CTA of the head and neck. Echocardiogram show No evidence of PFO, LVEF 60-65%, Mild left ventricular diastolic dysfunction, no pulmonary hypertension, no significant valvular dysfunction Carotid Dopplers ordered Lipid panel showed LDL 110 Patient started on aspirin and atorvastatin 40 mg Continue to monitor for any changes Neurology ok to sharif, PT/OT recommend inpatient rehab (2) CVA (cerebral vascular accident) Priority: Primary Status: Acute Assessment and Plan: Please see progressive focal motor weakness Qualifiers: CVA mechanism: unspecified Qualified Code(s): I63.9 - Cerebral infarction, unspecified (3) Hypertension Priority: Secondary Status: Acute Assessment and Plan: Neuro ok with permissive hyperteinsion above 185/100 PRN hydralazine for blood pressures above that Permissive hypertension in this case due to possible CVA should be followed Qualifiers: Hypertension type: unspecified Qualified Code(s): I10 - Essential (primary) hypertension (4) Tobacco abuse Priority: Secondary Status: Chronic Assessment and Plan: Patient is a one pack per week smoker Nicotine patches are contraindicated in this case due to possible CVA and nicotine's prothrombotic tendencies Spoke with patient about smoking cessation (5) DVT prophylaxis Priority: Secondary Status: Acute Assessment and Plan: [facility] Hospital course: Ms. Hall is a 74 year old female who initially presented with strokelike symptoms including right leg weakness and numbness and right hand weakness and numbness for approximately 3 days. Patient was admitted for CVA workup workup included CT head initially showed no acute intracranial abnormalities. MR showed Restricted diffusion within the left periventricular white matter extending into the left basal ganglia additional separate foci of restricted diffusion in the left posterior lentiform nucleus. Impression is acute infarct with left periventricular white matter extending into the left basal ganglia additional separate foci of restricted diffusion within the left posterior lentiform nucleus with associated susceptibility signal. No corresponding area of hemorrhage identified. CTA negative for hemorrhage. Echo showed no evidence of PFO by color Doppler or agitated saline, LVEF of 60-65%, mild left ventricular diastolic dysfunction, no pulmonary hypertension, no significant valvular dysfunction. Patient's vital signs on admission showed hypertension but no tachycardia and patient was afebrile. Patient has continued to be hypertensive although due to CVA permissive hypertension is suggested and neurology suggested Blood pressures to be 185/100. Patient has been started on aspirin as well as atorvastatin for elevated LDL. PT and OT have seen patient and advise inpatient rehabilitation. Discharge discussed with: patient - Time Spent with Patient Total time spent providing and/or coordinating discharge services: - Discharge Medications Prescriptions: New Aspirin 81 mg PO DAILY #30 tab.chew Atorvastatin [Lipitor] 40 mg PO HS 30 Days #30 tablet Home Medications: Aspirin 81 mg PO DAILY #30 tab.chew 05/02/19 [Rx] Atorvastatin [Lipitor] 40 mg PO HS 30 Days #30 tablet 05/02/19 [Rx] Allergies/Adverse Reactions: Allergy/AdvReac Type Severity Reaction Status Date / Time No Known Allergies Allergy Verified 04/30/19 16:39 Date of admission: 05/01/19 14:38 Primary care physician: PCP NONE Consults: 04/30/19 15:27 Consult to Occupational Therapy [CONS] Routine Comment: Evaluate, develop and implement POC Reason for Consult: right sided weakness Does patient have active BEDREST order?: No Is patient medically & hemodynamically stable?: Yes Consult to Physical Therapy [CONS] Routine Comment: Evaluate, develop and implement POC Reason for Consult: right sided weakness Does patient have active BEDREST order?: No Is patient medically & hemodynamically stable?: Yes 04/30/19 16:04 Consult to Neurology [CONS] Routine Consulting Provider: Neurology [facility] Reason for Consult: possible CVA- right leg and right arm weakness Call Completed: Yes 05/01/19 08:15 Consult to Director [employer] Operations [CONS] Routine Reason for SW Consult: ECF placement, + CVA, R sided weakness Discharging clinician: Nathalia Sharif Anticipated date of discharge: 05/02/19 - Constitutional Vitals: Temp Pulse Resp BP Pulse Ox 98.3 F 63 16 158/76 97 05/02/19 12:02 05/02/19 12:02 05/02/19 12:02 05/02/19 12:02 05/02/19 12:02 General appearance: Present: A&O X 3, no acute distress Exam: General: A 3, no acute distress, answers questions appropriately Head: normocephalic, atraumatic Eyes: MANJULA, no icterus Cardio: RRR, no mumurs, rubs, or gallops Respiratory: CTAB, no wheezing, rhonchi, rales Abd: normal bowel sounds, no guarding or rigidity Extremities: no pedal edema, pulses equal bilaterally, warm Neuro: Patient continues to have abnormal pass pointing on the right as well as atnj-yb-stky testing on the right, right arm strength continues be +4 out of 5 while left arm strength is +5 out of 5, right leg strength +3 out of 5 left leg strength was 5 out of 5 Skin: warm, dry, intact - Patient Status Disposition: Transfer Inpatient Rehab Fac Condition: Good Functional capacity at discharge: independent ambulation Overall status at discharge: patient is progressing back to baseline - Discharge Instructions Follow Up With: NONE,PCP [Primary Care Provider] - - Diet and Activity Activity: as per physical therapy Diet: low fat, low cholesterol <Nathalia Sharif - Last Filed: 05/02/19 18:37> Date of Encounter: 05/02/19 Hospital course: Ms. Hall is a 74 year old female - Time Spent with Patient Total time spent providing and/or coordinating discharge services: Date of admission: 05/01/19 14:38 Primary care physician: PCP NONE Consults: 04/30/19 15:27 Consult to Occupational Therapy [CONS] Routine Comment: Evaluate, develop and implement POC Reason for Consult: right sided weakness Does patient have active BEDREST order?: No Is patient medically & hemodynamically stable?: Yes Consult to Physical Therapy [CONS] Routine Comment: Evaluate, develop and implement POC Reason for Consult: right sided weakness Does patient have active BEDREST order?: No Is patient medically & hemodynamically stable?: Yes 04/30/19 16:04 Consult to Neurology [CONS] Routine Consulting Provider: Neu[facility] Reason for Consult: possible CVA- right leg and right arm weakness Call Completed: Yes 05/01/19 08:15 Consult to Director Geothermal Operations [CONS] Routine Reason for SW Consult: ECF placement, + CVA, R sided weakness - Constitutional Vitals: Temp Pulse Resp BP Pulse Ox 98.3 F 63 16 158/76 97 05/02/19 12:02 05/02/19 12:02 05/02/19 12:02 05/02/19 12:02 05/02/19 12:02 - Attending Attestation I saw evaluated and examined this patient and reviewed objective data including labs and my medical decision-making was reviewed with the Resident Physician. I agree with the documented findings, disposition and treatment plan as described except to any changes set forth below. We independently had lucg-[id number] contact with the patient.
--- NOTE | 2019-05-02 22:36 | Electrocardiograph Report ---
[address] [place], [place] [address] Test Date: 2019-04-30 Pat Name: Sofia Hall Department: EXAM12 Room: 3B16 Gender: F [employer] Cable: : 1945 Requested By: Shania Chavez Order Number: [id number] Reading MD: Reny Mccallum Measurements Intervals [place] Rate: 70 P: 35 DC: 146 QRS: -29 QRSD: 86 T: 50 QT: 400 QTc: 432 Interpretive Statements Sinus rhythm Electronically Signed On 05-02-2019 22:35:13 EDT by Reny Mccallum
[2019-05-03 02:41] LABS: Basophils # 0.1 K/mcL (0.0-0.2); Basophils % 0.8 %; Eosinophils # 0.4 K/mcL (0.0-0.6); Eosinophils % 5.6 %; Hematocrit 39.3 % (35.3-44.9); Immature Granulocytes % 0.3 % (0-4); Lymphocytes # 2.1 K/mcL (0.6-4.6); Mean Corpuscular HGB Conc 33.1 g/dL (31.6-35.5); Mean Corpuscular Hemoglobin 30.7 pg (28.0-33.3); Mean Corpuscular Volume 92.7 fL (83.0-100.0); Mean Platelet Volume 10.1 fL (9.4-12.4); Monocytes # 0.5 K/mcL (0.0-1.3); Monocytes % 8.3 %; Neutrophils # 3.2 K/mcL (1.6-8.9); Platelet Count 220 K/mcL (140-400); Red Blood Count 4.24 M/mcL (3.82-4.97); Red Cell Distribution Width 12.5 % (11.5-14.5); White Blood Count 6.2 K/mcL (4.3-11.1)
[2019-05-03 02:58] LABS: BUN/Creatinine Ratio 39 (6-26); Blood Urea Nitrogen 23 mg/dL (8-23); Calcium 8.7 mg/dL (8.6-10.3); Carbon Dioxide 27 mEq/L (23-29); Chloride 107 mEq/L (98-107); Glucose 107 mg/dL (70-105); Osmolality,Calculated 298 (280-300); Potassium 3.5 mEq/L (3.5-5.1); Sodium 142 mEq/L (136-145); eGFR For African Americans > 60 (> 60); eGFR For Non-African Americans > 60 (> 60)
[2019-05-03] MEDS: Aspirin 81 MG TAB.CHEW PO SCH (08:08)
--- NOTE | 2019-05-03 10:14 | Internal Med Progress Note ---
<Sherri aMres E - Last Filed: 05/03/19 14:22> Hospitalist Progress Note - Encounter Date of Encounter: 05/03/19 Time of Encounter: 10:00 - Subjective Interval History: ms. Rafael rivera 4-year-old female initially presented for right arm and leg weakness. Admitted for CVA Patient was seen and examined at bedside today. She states that her right hand feels stronger today although still "has a mind of its "and that she occ asionally misses her mouth or trying to eat. She does state her right leg seems to be working a little bit better than before but is continuously week. Patient denies any chest pain, shortness of breath, abdominal pain, nausea, vomiting but does have some constipation. - Exam Vitals: Temp Pulse Resp BP Pulse Ox 97.5 F L 65 16 155/78 96 05/03/19 07:39 05/03/19 07:39 05/03/19 07:39 05/03/19 07:39 05/03/19 07:39 Exam: General: A 3, no acute distress, answers questions appropriately Head: normocephalic, atraumatic Eyes: MANJULA, no icterus Cardio: RRR, no mumurs, rubs, or gallops Respiratory: CTAB, no wheezing, rhonchi, rales Abd: normal bowel sounds, no guarding or rigidity Extremities: no pedal edema, pulses equal bilaterally, warm Neuro: Patient continues to have abnormal pass pointing on the right as well as pqic-cn-ulrl testing on the right, right arm strength now +5 out of 5 while left arm strength is +5 out of 5, right leg strength +3 out of 5 left leg strength was 5 out of 5 Skin: warm, dry, intact - Assessment and Plan (1) Progressive focal motor weakness Current Visit: Yes Status: Acute Assessment and Plan: Due to CVA symptoms of right lower extremity muscle weakness as well as right upper extremity muscle weakness This is been progressive for the past 3 days Patient denies any other symptoms Due to patient's NIH score of 2 as well as over 48 hours since symptoms started she is not a candidate for TPA at this time On exam patient has abnormal past-pointing right hand as well as tsga-fp-[id number] testing on the right. 3 out of 5 muscle strength lower right extremity 4 out of 5 muscle strength right upper extremity CT head shows no acute intracranial abnormalities although does show some mild periventricular and subcortical white matter patchy low attenuation which is compatible with chronic microvascular ischemic changes MRI head/brain without contrast: Acute infarct within left periventricular white matter extending into the left basal ganglia.Additional separate foci of restricted diffusion within the left posterior lentiform nucleus with associated susceptibility signal. No corresponding area of hemorrhage is identified on CT examination. This may represent sequela of previous lacunar infarct, although superimposed additional acute infarct is not excluded. Short interval follow-up CT examination may be obtained to exclude new small amount of hemorrhage. No evidence of acute lobar hemorrhage. No evidence of midline shift. Extensive presumed chronic small vessel ischemic white matter disease. Diffuse cerebral volume loss. Nonspecific left mastoid opacification Unremarkable CTA of the head and neck. Echocardiogram show No evidence of PFO, LVEF 60-65%, Mild left ventricular diastolic dysfunction, no pulmonary hypertension, no significant valvular dysfunction Lipid panel showed LDL 110 Patient started on aspirin and atorvastatin 40 mg Continue to monitor for any changes Neurology ok to sharif, PT/OT recommend inpatient rehab (2) CVA (cerebral vascular accident) Current Visit: Yes Status: Acute Assessment and Plan: Please see progressive focal motor weakness (3) Hypertension Current Visit: Yes Status: Acute Assessment and Plan: Neuro ok with permissive hyperteinsion above 185/100 PRN hydralazine for blood pressures above that Permissive hypertension in this case due to possible CVA should be followed (4) Tobacco abuse Current Visit: Yes Status: Chronic Assessment and Plan: Patient is a one pack per week smoker Nicotine patches are contraindicated in this case due to possible CVA and lalo ansari's prothrombotic tendencies Spoke with patient about smoking cessation (5) DVT prophylaxis Current Visit: Yes Status: Acute Assessment and Plan: ECPDs DVT Prophylaxis: ECPDs - Time Spent with Patient Total time spent is greater than 50% in coordination of care (as documented) at patient's floor/unit and/or counseling patient: Internal Medicine: Result - Labs CBC & Chem 7: 05/03/19 01:46 05/03/19 01:46 Labs: Short CBC 05/03/19 Range/Units 01:46 WBC 6.2 (4.3-11.1) K/mcL Hgb 13.0 (11.5-15.4) g/dL Hct 39.3 (35.3-44.9) % Plt Count 220 (140-400) K/mcL Neutrophils # 3.2 (1.6-8.9) K/mcL BMP 05/03/19 01:46 Sodium 142 Potassium 3.5 Chloride 107 Carbon Dioxide 27 BUN 23 Creatinine 0.59 L Glucose 107 H Calcium 8.7 - ABG Interpretation ABG results: PT/INR, D-dimer PT 12.1 Seconds (9.4-12.1) 05/01/19 05:25 - Impressions Impressions Head CT 04/30/19 13:10 IMPRESSION: No acute intracranial abnormality. D/ / 04/30/2019 13:37:26 Melissa Castellanos MD / cassidy Interpreting Provider: Melissa Castellanos MD Consult Discharge Plan - Plan Referrals: NONE,PCP [Primary Care Provider] - Prescriptions: Aspirin 81 mg PO DAILY #30 tab.chew Atorvastatin [Lipitor] 40 mg PO HS 30 Days #30 tablet <Nathalia Sharif - Last Filed: 05/03/19 22:16> Hospitalist Progress Note - Encounter Date of Encounter: 05/03/19 - Exam Vitals: Temp Pulse Resp BP Pulse Ox 98.2 F 69 16 179/81 94 05/03/19 15:43 05/03/19 15:43 05/03/19 15:43 05/03/19 15:43 05/03/19 15:43 - Time Spent with Patient Total time spent is greater than 50% in coordination of care (as documented) at patient's floor/unit and/or counseling patient: Internal Medicine: Result - Labs CBC & Chem 7: 05/03/19 01:46 05/03/19 01:46 Labs: Short CBC 05/03/19 Range/Units 01:46 WBC 6.2 (4.3-11.1) K/mcL Hgb 13.0 (11.5-15.4) g/dL Hct 39.3 (35.3-44.9) % Plt Count 220 (140-400) K/mcL Neutrophils # 3.2 (1.6-8.9) K/mcL BMP 05/03/19 01:46 Sodium 142 Potassium 3.5 Chloride 107 Carbon Dioxide 27 BUN 23 Creatinine 0.59 L Glucose 107 H Calcium 8.7 - ABG Interpretation ABG results: PT/INR, D-dimer PT 12.1 Seconds (9.4-12.1) 05/01/19 05:25 - Attending Attestation I saw evaluated and examined this patient and reviewed objective data including labs and my medical decision-making was reviewed with the Resident Physician. I agree with the documented findings, disposition and treatment plan as described except to any changes set forth below. We independently had [id number]-[id number] contact with the patient. No acute events, no complaints. Strength slowly improved, eating lunch without issue. VS: reviewed, labs: reviewed. Patient ready for discharge, awaiting placement to swing bed. <Sherri Mares - Last Filed: 05/03/19 14:22> (2) CVA (cerebral vascular accident) Qualifiers: CVA mechanism: unspecified Qualified Code(s): I63.9 - Cerebral infarction, unspecified (3) Hypertension Qualifiers: Hypertension type: unspecified Qualified Code(s): I10 - Essential (primary) hypertension
[2019-05-03] MEDS: amLODIPine 5 MG TABLET PO SCH (22:20)
[2019-05-04 07:25] VITALS: BP 148/81
[2019-05-04] MEDS: Aspirin 81 MG TAB.CHEW PO SCH (07:33)
[2019-05-04] MEDS: amLODIPine 5 MG TABLET PO SCH (07:33)
--- NOTE | 2019-05-04 08:43 | Discharge Summary ---
<Magdy Sutton I - Last Filed: 05/04/19 10:36> - NOTES TO OUTPATIENT PROVIDER Notes to Outpatient Provider: Ms. Hall is a 74 year old female who initially presented with strokelike symptoms including right leg and right hand weakness and numbness . MRI showes cute infarct with left periventricular white matter extending into the left basal ganglia .Patient has been started on aspirin as well as atorvastatin for elevated LDL. Date of Encounter: 05/04/19 Time of Encounter: 09:10 - Discharge Diagnosis (1) Stroke-like symptoms Priority: Primary Status: Acute (2) Hypertension Priority: Secondary Status: Acute Qualifiers: Hypertension type: unspecified Qualified Code(s): I10 - Essential (primary) hypertension (3) Tobacco abuse Priority: Secondary Status: Chronic Hospital course: Ms. Hall is a 74 year old female who initially presented with strokelike symptoms including right leg weakness and numbness and right hand weakness and numbness for approximately 3 days. Patient was admitted for CVA workup included CT head initially showed no acute intracranial abnormalities. MR showed Restricted diffusion within the left periventricular white matter extending into the left basal ganglia additional separate foci of restricted diffusion in the left posterior lentiform nucleus. Impression is acute infarct with left periventricular white matter extending into the left basal ganglia additional separate foci of restricted diffusion within the left posterior lentiform nucleus with associated susceptibility signal. No corresponding area of hemorrhage identified. CTA negative for hemorrhage. Echo showed no evidence of PFO by color Doppler or agitated saline, LVEF of 60-65%, mild left ventricular diastolic dysfunction, no pulmonary hypertension, no significant valvular dysfunction. Patient's vital signs on admission showed hypertension but no tachycardia and patient was afebrile. Patient has continued to be hypertensive although due to CVA permissive hypertension is suggested and neurology suggested Blood pressures to be 185/100. Patient has been started on aspirin as well as atorvastatin for elevated LDL. PT and OT have seen patient and advise inpatient rehabilitation. - Time Spent with Patient Total time spent providing and/or coordinating discharge services: - Discharge Medications Prescriptions: New Aspirin 81 mg PO DAILY #30 tab.chew Atorvastatin [Lipitor] 40 mg PO HS 30 Days #30 tablet Home Medications: Aspirin 81 mg PO DAILY #30 tab.chew 05/02/19 [Rx] Atorvastatin [Lipitor] 40 mg PO HS 30 Days #30 tablet 05/02/19 [Rx] Allergies/Adverse Reactions: Allergy/AdvReac Type Severity Reaction Status Date / Time No Known Allergies Allergy Verified 04/30/19 16:39 Date of admission: 05/01/19 14:38 Primary care physician: PCP NONE Consults: 04/30/19 15:27 Consult to Occupational Therapy [CONS] Routine Comment: Evaluate, develop and implement POC Reason for Consult: right sided weakness Does patient have active BEDREST order?: No Is patient medically & hemodynamically stable?: Yes Consult to Physical Therapy [CONS] Routine Comment: Evaluate, develop and implement POC Reason for Consult: right sided weakness Does patient have active BEDREST order?: No Is patient medically & hemodynamically stable?: Yes 04/30/19 16:04 Consult to Neurology [CONS] Routine Consulting Provider: [facility] Reason for Consult: possible CVA- right leg and right arm weakness Call Completed: Yes 05/01/19 08:15 Consult to Site Safety Representative [CONS] Routine Reason for SW Consult: ECF placement, + CVA, R sided weakness - Constitutional Vitals: Temp Pulse Resp BP Pulse Ox 97.7 F 71 15 148/81 71 05/04/19 07:18 05/04/19 07:18 05/04/19 07:18 05/04/19 07:18 05/04/19 07:18 General appearance: Present: A&O X 3, no acute distress Exam: General: A 3, no acute distress, answers questions appropriately Head: normocephalic, atraumatic Eyes: MANJULA, no icterus Cardio: RRR, no mumurs, rubs, or gallops Respiratory: CTAB, no wheezing, rhonchi, rales Abd: normal bowel sounds, no guarding or rigidity Extremities: no pedal edema, pulses equal bilaterally, warm Neuro: Patient continues to have abnormal pass pointing on the right as well as [id number]-hq-[id number] testing on the right, right arm strength continues be +4 out of 5 while left arm strength is +5 out of 5, right leg strength +3 out of 5 left leg strength was 5 out of 5 Skin: warm, dry, intact - Patient Status Disposition: Transfer Inpatient Rehab Fac Condition: Good Functional capacity at discharge: independent ambulation Overall status at discharge: patient is progressing back to baseline - Discharge Instructions Follow Up With: NONE,PCP [Primary Care Provider] - - Diet and Activity Activity: as per physical therapy Diet: low fat, low cholesterol <Sharan Blue - Last Filed: 05/04/19 15:36> Date of Encounter: 05/04/19 Time of Encounter: 15:25 Hospital course: Ms. Hall is a 74 year old female - Time Spent with Patient Total time spent providing and/or coordinating discharge services: Date of admission: 05/01/19 14:38 Primary care physician: PCP NONE Consults: 04/30/19 15:27 Consult to Occupational Therapy [CONS] Routine Comment: Evaluate, develop and implement POC Reason for Consult: right sided weakness Does patient have active BEDREST order?: No Is patient medically & hemodynamically stable?: Yes Consult to Physical Therapy [CONS] Routine Comment: Evaluate, develop and implement POC Reason for Consult: right sided weakness Does patient have active BEDREST order?: No Is patient medically & hemodynamically stable?: Yes 04/30/19 16:04 Consult to Neurology [CONS] Routine Consulting Provider: [facility] Reason for Consult: possible CVA- right leg and right arm weakness Call Completed: Yes 05/01/19 08:15 Consult to Site Safety Representative [CONS] Routine Reason for SW Consult: ECF placement, + CVA, R sided weakness - Constitutional Vitals: Temp Pulse Resp BP Pulse Ox 97.7 F 71 15 148/81 71 05/04/19 07:18 05/04/19 07:18 05/04/19 07:18 05/04/19 07:18 05/04/19 07:18 - Attending Attestation I saw evaluated and examined this patient and reviewed objective data including labs and my medical decision-making was reviewed with the Resident Physician, Magdy Sutton. I agree with the documented findings, disposition and discharge plan as described except to any changes set forth below. We independently had bfgw-ux-[id number] contact with the patient. Patient with a history of hypertension was hospitalized here after his stroke resulting in right-sided weakness. Patient has been evaluated by neurology and has been receiving aspirin and statin. She underwent an MRI of the brain which showed acute infarct in the left periventricular white matter extending into left basal ganglia. Patient also had separate foci of restricted diffusion within the left posterior lentiform nucleus. No hemorrhage was identified. Rest of the workup was negative. Patient did not have any significant stenosis on CT angiogram of the head and neck. No PFO identified. No cardiac arrhythmia. Patient will be discharged to skilled rehabilitation today. Time spent on discharge: 5 min
--- NOTE | 2019-05-04 08:57 | Physician Discharge Referral ---
[facility] Referral Info Transfer To: in patient rehab - Diagnosis (1) Stroke-like symptoms Priority: Primary Status: Acute (2) Hypertension Priority: Secondary Status: Acute (3) Tobacco abuse Priority: Secondary Status: Chronic - Transfer Medications Prescriptions: Aspirin 81 mg PO DAILY #30 tab.chew Atorvastatin [Lipitor] 40 mg PO HS 30 Days #30 tablet Home Medications: Aspirin 81 mg PO DAILY #30 tab.chew 05/02/19 [Rx] Atorvastatin [Lipitor] 40 mg PO HS 30 Days #30 tablet 05/02/19 [Rx] Allergies/Adverse Reactions: Allergy/AdvReac Type Severity Reaction Status Date / Time No Known Allergies Allergy Verified 04/30/19 16:39 - Respiratory Orders None Smoking Cessation: Smoking cessation has been advised. For more information, call the [place] Tobacco Quit Line at 6-859-VHIONOW. - Mobility Orders Ambulate - Rehabiliation Orders Rehab Orders: ROM Exercises, Evaluation for Physical Therapy, Evaluation for Occupational Therapy - Diet Orders No Added Salt (VEL) CERTIFICATION: I certify that the transfer of the above named patient to an Extended Care Facility is necessary for the continuing treatment of the diagnosis listed. The above information is true and accurate reflection of patient's current condition. Confidential - Redisclosure prohibited without a patient's written consent.
== END 2019-05-04 11:44 | DRG 65 ==
LOC: EMEROOARM 12:33 → 3BNU 12:33 → SUATTDRO 14:38 → 3BNU 14:59
PROVIDERS: ADMIT Internal Medicine; ATTEND Student in an Organized Health Care Education/Training Program